=== PATIENT | male | born 1985 | race Caucasian/White ===

== ENCOUNTER 2017-04-30 13:33 | Emergency (ER) | payer OTHER ==
[2017-04-30 13:46] VITALS: BMI 27.0
--- NOTE | 2017-04-30 13:57 | C.PDOC ---
History Of Present Illness 31 y.o male c/o left wrist pain on and off for the last year, with no preceding injury, now more painful in the last week. pt thinks he may have twisted it at the gym when working out recently. no numbness or tingling. pt is right hand dominant. pt applied icy hot to affected area with no improvement. Time Seen by Provider: 04/30/17 13:50 Chief Complaint (Nursing): Upper Extremity Problem/Injury History/Exam Limitations: no limitations (one and off for one year, worse last week) Current Symptoms Are (Timing): Still Present Quality: "Pain" Exacerbating Factor(s): Movement Past Medical History Reviewed: Historical Data, Nursing Documentation, Vital Signs Vital Signs: Last Vital Signs Temp 98.2 F 04/30/17 13:47 Pulse 77 04/30/17 13:47 Resp 17 04/30/17 13:47 BP 135/75 04/30/17 13:47 Pulse Ox 99 04/30/17 14:01 - Medical History PMH: No Chronic Diseases Surgical History: No Surg Hx Family History: States: Unknown Family Hx - Social History Hx Tobacco Use: No Hx Alcohol Use: Yes Hx Substance Use: No - Immunization History Hx Tetanus Toxoid Vaccination: No Hx Influenza Vaccination: No Hx Pneumococcal Vaccination: No Review Of Systems Constitutional: Negative for: Fever, Chills Musculoskeletal: Positive for: Arm Pain Neurological: Negative for: Weakness, Numbness Physical Exam - Physical Exam Appears: Non-toxic, No Acute Distress Skin: Warm, Dry Extremity: Normal ROM, Tenderness (mild tenderness distal forearm/wrist on ulnar aspect, from at wrist, no erythema, warmth or swelling noted. cap refill less than 2 seconds, sensation intact, no pain to left hand.) Neurological/Psych: Oriented x3, Normal Speech, Normal Cognition ED Course And Treatment O2 Sat by Pulse Oximetry: 99 Medical Decision Making Medical Decision Making: analgesics ordered, xray ordered. 257 pm no fx noted on xray. wrist splint applied. f/c home, f./u ortho Disposition Counseled Patient/Family Regarding: Studies Performed, Diagnosis, Need For Followup - Disposition Referrals: Clinic,Med Surg [Primary Care Provider] - Ed Casas III, MD [Staff Provider] - [facility] [Outside] Disposition Time: 14:58 Condition: GOOD Additional Instructions: Wear wrist splint for comfort, FOllow up with orthopedist; if having difficulty making appointment, call [facility] servies. Ibuprofen 600 mg by mouth every 6 hours (with food) for pain. Instructions: Wrist Sprain (ED) Forms: General Discharge Instructions - Clinical Impression Clinical Impression: Left wrist sprain
[2017-04-30 14:09] VITALS: TEMP 98.2; O2SAT 99
[2017-04-30 15:03] VITALS: BP 122/75; PULSE 72; RESP 18
--- NOTE | 2017-04-30 17:33 | RAD ---
PROCEDURE: Left Wrist Radiographs. HISTORY: distal ulnar pain COMPARISON: None. FINDINGS: BONES: Normal. No fracture. . . Questionable small cystic changes within the lunate and capitate JOINTS: Normal. No dislocation. SOFT TISSUES: Normal. OTHER FINDINGS: None. IMPRESSION: No evidence of acute displaced fracture nor dislocation. If symptoms persist or occult fracture suspected clinically recommend repeat radiographs 5-10 days as most fractures should become radiographically evident this timeframe. .
== END 2017-04-30 15:07 | disposition home or self-care (01) ==
LOC: SUPCPDRO 13:33 → C.ER 13:33
DX: S63.502A Unspecified sprain of left wrist, initial encounter (principal); X58.XXXA Exposure to other specified factors, initial encounter

== ENCOUNTER 2017-07-24 09:46 | Emergency (ER) | payer OTHER ==
[2017-07-24 09:46] VITALS: BMI 27.0
[2017-07-24 10:01] VITALS: BP 135/96; PULSE 92; RESP 18; TEMP 97.7; O2SAT 98
[2017-07-24] MEDS ORDERED: Lidocaine 5% Patch TD STA (10:19)
--- NOTE | 2017-07-24 10:24 | C.PDOC ---
History Of Present Illness 31 y/o male presents to ED with complaints of mid back pain for 2 weeks. Pain is localized and is worse with movement. Patient states he has Hx of prior similar symptoms but hasn't had pain in 2-3 years. Patient reports limited improvement of symptoms with 800mg Motrin and states no meds were taken today. Patient denies fever, chills, urinary symptoms, abdominal pain, nausea, vomiting or any other complaints at this time. MID BACK PAIN X 2 WEEKS. NO TRAUMA. PS HO PRIOR SIM SX BUT HASNT HAD PAIN IN 2- 3 YEARS. PAIN LOCALIZED WORSE W MOVEMENT. LIMITED IMPROVE W MOTRIN 800 MG. NO MEDS TAKEN TODAY. DENIES OTHER ASSOC SX. EXAM MILD DIST NONTOXIC BACK NO SPINAL TEND. REPRODUC PAIN W FLEX/EXTENSION. +LOCAL PARASPINAL SPASM W LOCAL TEND. NEURO INTACT SKIN NEG Time Seen by Provider: 07/24/17 10:13 Chief Complaint (Nursing): Back Pain History Per: Patient History/Exam Limitations: no limitations Onset/Duration Of Symptoms: Days Current Symptoms Are (Timing): Still Present Past Medical History Reviewed: Historical Data, Nursing Documentation, Vital Signs Vital Signs: Last Vital Signs Temp 97.7 F 07/24/17 10:01 Pulse 92 H 07/24/17 10:01 Resp 18 07/24/17 10:01 BP 135/96 H 07/24/17 10:01 Pulse Ox 98 07/24/17 10:24 Family History: States: No Known Family Hx - Social History Hx Tobacco Use: No Hx Alcohol Use: Yes Hx Substance Use: No - Immunization History Hx Tetanus Toxoid Vaccination: No Hx Influenza Vaccination: No Hx Pneumococcal Vaccination: No Review Of Systems Except As Marked, All Systems Reviewed And Found Negative. Constitutional: Negative for: Fever, Chills Gastrointestinal: Negative for: Nausea, Vomiting, Abdominal Pain Genitourinary: Negative for: Dysuria, Frequency, Incontinence Musculoskeletal: Positive for: Back Pain Skin: Negative for: Rash Physical Exam - Physical Exam Appears: Non-toxic, Other (Mild distress) Skin: Normal Color, Warm, Dry, No Rash Head: Atraumatic, Normacephalic Eye(s): bilateral: Normal Inspection Oral Mucosa: Moist Neck: Normal ROM, Supple Chest: Symmetrical Gastrointestinal/Abdominal: Soft, No Tenderness, No Guarding, No Rebound Back: Muscle Spasm (Parsaspinal w/ local tenderness), No Paraspinal Tenderness, Other (Reproducible pain with flex/extension) Neurological/Psych: Oriented x3, Normal Speech, Normal Cognition Gait: Steady ED Course And Treatment O2 Sat by Pulse Oximetry: 98 (RA) Pulse Ox Interpretation: Normal Disposition Counseled Patient/Family Regarding: Diagnosis, Need For Followup, Rx Given - Disposition Referrals: [facility] [Outside] [facility] [Outside] Disposition: HOME/ ROUTINE Disposition Time: 10:23 Condition: IMPROVED Prescriptions: Acetaminophen [Tylenol Extra Strength] 2 tab PO Q6 #30 tablet Cyclobenzaprine [Flexeril] 10 mg PO TID #15 tab Ibuprofen [Motrin Tab] 800 mg PO Q6 #30 tab Lidocaine 5% [Lidoderm] 1 ea TD PRN PRN #10 patch PRN Reason: Pain, Moderate (4-7) Instructions: Chronic Back Pain (ED) Forms: [employer] (Afghan) - Clinical Impression Clinical Impression: Acute exacerbation of chronic low back pain - PA / JUV[employer]ILE [employer] OFFICER / Resident Statement MD/DO has examined the patient and agrees with the treatment plan. - Scribe Statement The provider has reviewed the documentation as recorded by the Kellieibnyla Bocanegra All medical record entries made by the Demian were at my direction and personally dictated by me. I have reviewed the chart and agree that the record accurately reflects my personal performance of the history, physical exam, medical decision making, and the department course for this patient. I have also personally directed, reviewed, and agree with the discharge instructions and disposition.
[2017-07-24] MEDS ORDERED: Lidocaine 5% Patch TD ONE (10:27)
== END 2017-07-24 10:43 | disposition home or self-care (01) ==
LOC: C.ER 09:46
DX: G89.29 Other chronic pain (principal); M54.5 Low back pain
CPT/HCPCS: 99283; J8540

== ENCOUNTER 2018-03-11 08:47 | Emergency (ER) | payer OTHER ==
[2018-03-11 08:48] VITALS: BMI 27.0
[2018-03-11 09:01] VITALS: RESP 18; TEMP 97.9
[2018-03-11 09:49] VITALS: BP 131/90; PULSE 62; O2SAT 98
--- NOTE | 2018-03-11 10:49 | C.PDOC ---
History Of Present Illness 32 year old male presents to the emergency department with complaints of a hoarse voice for the past month. Patient states that his throat and nasal passages have been dry, and that he has been experiencing a dry cough. Patient denies any fever. Patient reports that he traveled out of the country to [facility] last month. Chief Complaint (Nursing): ENT Problem History Per: Patient History/Exam Limitations: None Onset/Duration Of Symptoms: Days (1 month) Current Symptoms Are (Timing): Still Present Quality (Mouth/Throat): Other (dry nasal passages and throat) Past Medical History Reviewed: Historical Data, Nursing Documentation, Vital Signs Vital Signs: Last Vital Signs Temp 97.9 F 03/11/18 08:57 Pulse 62 03/11/18 09:48 Resp 18 03/11/18 09:48 BP 131/90 03/11/18 09:48 Pulse Ox 98 03/11/18 10:54 - Medical History PMH: No Chronic Diseases Surgical History: No Surg Hx Family History: States: No Known Family Hx - Social History Hx Tobacco Use: No Hx Alcohol Use: Yes Hx Substance Use: No - Immunization History Hx Tetanus Toxoid Vaccination: No Hx Influenza Vaccination: No Hx Pneumococcal Vaccination: No Review Of Systems Except As Marked, All Systems Reviewed And Found Negative. Constitutional: Negative for: Fever ENT: Positive for: Other (dry throat and nasal passages) Respiratory: Positive for: Cough (dry), Other (hoarse voice) Physical Exam - Physical Exam Appears: Non-toxic, No Acute Distress Oral Mucosa: Dry Throat: Other (cobblestoning in the pharynx) Cardiovascular: Rhythm Regular Respiratory: Normal Breath Sounds Gastrointestinal/Abdominal: Normal Exam, Soft, No Tenderness Extremity: Normal ROM ED Course And Treatment O2 Sat by Pulse Oximetry: 98 (RA) Pulse Ox Interpretation: Normal Disposition - Disposition Referrals: [facility] [Outside] [facility] [Outside] Disposition: HOME/ ROUTINE Disposition Time: 09:20 Condition: GOOD Additional Instructions: Thank you for letting us take care of you today. The emergency medical care you received today was directed at your acute symptoms. If you were prescribed any medication, please fill it and take as directed. It may take several days for your symptoms to resolve. Return to the Emergency Department if your symptoms worsen, do not improve, or if you have any other problems. Please contact your doctor or call one of the physicians/clinics you have been referred to that are listed on the Patient Visit Information form that is included in your discharge packet. Bring any paperwork you were given at discharge with you along with any medications you are taking to your follow up visit. Our treatment cannot replace ongoing medical care by a primary care provider (PCP) outside of the emergency department. Thank you for allowing the [facility] team to be part of your care today. Follow up with the clinic in 3-4 days for re-evaluation and further management. Prescriptions: Methylprednisolone [Medrol Dose Pack (21 tabs)] 4 mg PO ASDIR #21 mg Instructions: Laryngitis (DC) Forms: [employer] (Japanese) - Clinical Impression Clinical Impression: Laryngitis - Scribe Statement The provider has reviewed the documentation as recorded by the Scribe (Tyree Mahajan) Provider Attestation: All medical record entries made by the Scribe were at my direction and personally dictated by me. I have reviewed the chart and agree that the record accurately reflects my personal performance of the history, physical exam, medical decision making, and the department course for this patient. I have also personally directed, reviewed, and agree with the discharge instructions and disposition.
== END 2018-03-11 09:49 | disposition home or self-care (01) ==
LOC: C.ER 08:47
DX: J04.0 Acute laryngitis (principal); F17.210 Nicotine dependence, cigarettes, uncomplicated